=== PATIENT | female | born 1930 | race Caucasian/White ===

== ENCOUNTER → 2016-08-30 | Outpatient (CLI) | payer MEDICARE, OTHER ==
[2016-08-30 09:19] LABS: CH 31.5; CHCM 33.8; HCT 43.5 % (34.0-46.0); HDW 2.51; HGB 14.5 gm/dL (11.4-16.0); MCH 31.2 pg (25.0-35.0); MCHC 33.3 g/dL (31.0-37.0); MCV 93.6 fL (80.0-100.0); RBC 4.64 m/uL (3.80-5.40); RDW 13.1 % (11.5-15.5); WBC 4.9 k/uL (3.8-10.6)
[2016-08-30 09:23] LABS: ALT 37 U/L (9-52); AST 25 U/L (14-36); Alkaline Phosphatase 99 U/L (38-126); Anion Gap 8 mmol/L; Blood Urea Nitrogen 14 mg/dL (7-17); Calcium 9.8 mg/dL (8.4-10.2); Carbon Dioxide 32 mmol/L (22-30); Chloride 99 mmol/L (98-107); Cholesterol 256 mg/dL (<200); Glucose 131 mg/dL (74-99); HDL Cholesterol 57 mg/dL (40-60); Non-African American GFR(MDRD) >60 (>60 ml/min/1.73 sqM); Sodium 139 mmol/L (137-145); Total Bilirubin 0.8 mg/dL (0.2-1.3); Triglycerides 179 mg/dL (<150)
[2016-08-30 10:31] LABS: Amorphous Sediment,Urine Rare /hpf; Appearance,Urine Cloudy (Clear); Bilirubin,Urine Negative (Negative); Glucose,Urine (UA) Negative (Negative); Ketones,Urine Negative (Negative); Leukocyte Esterase,Urine Large (Negative); Mucus,Urine Rare /hpf; Nitrite,Urine Negative (Negative); PH, Urine 6.5 (5.0-8.0); Particle Count 10015; Protein,Urine 1+ (Negative); Specific Gravity,Urine 1.014 (1.001-1.035); Squamous Epithelial Cell,Urine 2 /hpf (0-4); UA Billing (MACRO vs. MICRO) MICRO; Urobilinogen,Urine <2.0 mg/dL (<2.0); WBC,Urine 24 /hpf (0-5)
[2016-08-30 13:06] LABS: Hemoglobin A1C 5.7 % (4.2-6.1)
== END | disposition home or self-care (01) ==
LOC: LABWHC1 08:04
PROVIDERS: ATTEND Family Medicine
DX: E11.9 Type 2 diabetes mellitus without complications (principal); E78.5 Hyperlipidemia, unspecified
CPT/HCPCS: 36415; 80053; 80061; 81001; 82043; 83036; 85027

== ENCOUNTER → 2016-12-04 | Outpatient (CLI) | payer MEDICARE, OTHER ==
[2016-12-04 08:08] LABS: CH 31.6; CHCM 33.8; HCT 42.6 % (34.0-46.0); HDW 2.44; HGB 14.3 gm/dL (11.4-16.0); MCH 31.6 pg (25.0-35.0); MCHC 33.6 g/dL (31.0-37.0); Mean Platelet Volume 7.4; RBC 4.53 m/uL (3.80-5.40); RDW 13.5 % (11.5-15.5); WBC 4.7 k/uL (3.8-10.6)
[2016-12-04 08:28] LABS: ALT 27 U/L (9-52); AST 24 U/L (14-36); Alkaline Phosphatase 108 U/L (38-126); Anion Gap 10 mmol/L; Blood Urea Nitrogen 15 mg/dL (7-17); Calcium 9.6 mg/dL (8.4-10.2); Carbon Dioxide 26 mmol/L (22-30); Chloride 105 mmol/L (98-107); Cholesterol 249 mg/dL (<200); Glucose 120 mg/dL (74-99); HDL Cholesterol 64 mg/dL (40-60); Non-African American GFR(MDRD) >60 (>60 ml/min/1.73 sqM); Potassium 4.2 mmol/L (3.5-5.1); Sodium 141 mmol/L (137-145); Total Bilirubin 0.8 mg/dL (0.2-1.3); Total Protein 6.9 g/dL (6.3-8.2); Triglycerides 124 mg/dL (<150)
== END | disposition home or self-care (01) ==
LOC: LABWHC1 07:10
PROVIDERS: ATTEND Family Medicine
DX: E11.9 Type 2 diabetes mellitus without complications (principal); E78.5 Hyperlipidemia, unspecified
CPT/HCPCS: 36415; 80053; 80061; 83036; 85027

== ENCOUNTER → 2017-03-06 | Outpatient (CLI) | payer MEDICARE, OTHER ==
[2017-03-06 07:44] LABS: CHCM 33.8; HCT 44.2 % (34.0-46.0); HDW 2.42; HGB 14.6 gm/dL (11.4-16.0); MCH 31.5 pg (25.0-35.0); MCV 95.3 fL (80.0-100.0); Mean Platelet Volume 7.9; RBC 4.64 m/uL (3.80-5.40); RDW 14.1 % (11.5-15.5); WBC 4.6 k/uL (3.8-10.6)
[2017-03-06 08:32] LABS: ALT 29 U/L (9-52); AST 23 U/L (14-36); Alkaline Phosphatase 124 U/L (38-126); Anion Gap 7 mmol/L; Blood Urea Nitrogen 15 mg/dL (7-17); Calcium 9.8 mg/dL (8.4-10.2); Carbon Dioxide 29 mmol/L (22-30); Chloride 103 mmol/L (98-107); Cholesterol 270 mg/dL (<200); Glucose 125 mg/dL (74-99); HDL Cholesterol 65 mg/dL (40-60); Non-African American GFR(MDRD) >60 (>60 ml/min/1.73 sqM); Potassium 4.9 mmol/L (3.5-5.1); Sodium 139 mmol/L (137-145); Total Bilirubin 0.7 mg/dL (0.2-1.3); Total Protein 6.6 g/dL (6.3-8.2)
== END | disposition home or self-care (01) ==
LOC: LABWHC1 07:08
PROVIDERS: ATTEND Family Medicine
DX: E78.5 Hyperlipidemia, unspecified (principal); E11.9 Type 2 diabetes mellitus without complications
CPT/HCPCS: 36415; 80053; 80061; 83036; 85027

== ENCOUNTER → 2017-06-12 | Outpatient (CLI) | payer MEDICARE, OTHER ==
[2017-06-12 09:53] LABS: Basophils # (A) 0.1 k/uL (0-0.2); Basophils % (A) 1 %; CH 30.7; CHCM 32.2; Eosinophils # (A) 0.1 k/uL (0-0.7); Eosinophils % (A) 1 %; HCT 44.5 % (34.0-46.0); HDW 2.32; HGB 14.5 gm/dL (11.4-16.0); Luc % (Auto) 2; Lymphocytes # (A) 0.9 k/uL (1.0-4.8); Lymphocytes % (A) 19 %; MCH 31.1 pg (25.0-35.0); MCHC 32.5 g/dL (31.0-37.0); MCV 95.9 fL (80.0-100.0); Mean Platelet Volume 8.1; Monocytes # (A) 0.4 k/uL (0-1.0); Monocytes % (A) 9 %; Neutrophils # (A) 3.2 k/uL (1.3-7.7); Neutrophils % (A) 68 %; RBC 4.64 m/uL (3.80-5.40); RDW 14.7 % (11.5-15.5); WBC 4.7 k/uL (3.8-10.6); WBC (Perox) 4.71
[2017-06-12 10:00] LABS: Amorphous Sediment,Urine Few /hpf; Appearance,Urine Cloudy (Clear); Bacteria,Urine Rare /hpf; Bilirubin,Urine Negative (Negative); Glucose,Urine (UA) Negative (Negative); Ketones,Urine Negative (Negative); Leukocyte Esterase,Urine Large (Negative); Nitrite,Urine Negative (Negative); Particle Count 54765; Protein,Urine Negative (Negative); Specific Gravity,Urine 1.007 (1.001-1.035); UA Billing (MACRO vs. MICRO) MICRO; Urobilinogen,Urine <2.0 mg/dL (<2.0); WBC,Urine 32 /hpf (0-5)
[2017-06-12 10:10] LABS: ALT 29 U/L (9-52); AST 27 U/L (14-36); Alkaline Phosphatase 104 U/L (38-126); Anion Gap 8 mmol/L; Blood Urea Nitrogen 13 mg/dL (7-17); Calcium 10.1 mg/dL (8.4-10.2); Carbon Dioxide 30 mmol/L (22-30); Chloride 102 mmol/L (98-107); Cholesterol 267 mg/dL (<200); Glucose 128 mg/dL (74-99); HDL Cholesterol 63 mg/dL (40-60); Non-African American GFR(MDRD) >60 (>60 ml/min/1.73 sqM); Potassium 4.6 mmol/L (3.5-5.1); Sodium 140 mmol/L (137-145); Total Bilirubin 0.7 mg/dL (0.2-1.3)
[2017-06-12 18:46] LABS: Urine Creatinine 33.3 mg/dL
== END | disposition home or self-care (01) ==
LOC: LABWHC1 07:34
PROVIDERS: ATTEND Family Medicine
DX: E78.5 Hyperlipidemia, unspecified (principal); E11.9 Type 2 diabetes mellitus without complications
CPT/HCPCS: 36415; 80053; 80061; 81001; 82043; 82570; 83036; 85025

== ENCOUNTER → 2017-09-18 | Outpatient (CLI) | payer MEDICARE, OTHER ==
[2017-09-18 07:54] LABS: Basophils % (A) 1 %; Eosinophils # (A) 0.1 k/uL (0-0.7); Eosinophils % (A) 1 %; HCT 38.7 % (34.0-46.0); HGB 13.1 gm/dL (11.4-16.0); Lymphocytes # (A) 1.1 k/uL (1.0-4.8); Lymphocytes % (A) 22 %; MCH 31.1 pg (25.0-35.0); MCHC 33.9 g/dL (31.0-37.0); MCV 91.7 fL (80.0-100.0); Mean Platelet Volume 7.8; Monocytes # (A) 0.5 k/uL (0-1.0); Monocytes % (A) 9 %; Neutrophils # (A) 3.2 k/uL (1.3-7.7); Neutrophils % (A) 65 %; Platelet Count 181 k/uL (150-450); RBC 4.22 m/uL (3.80-5.40); RDW 13.1 % (11.5-15.5)
[2017-09-18 08:20] LABS: ALT 27 U/L (9-52); AST 22 U/L (14-36); Alkaline Phosphatase 112 U/L (38-126); Anion Gap 8 mmol/L; Blood Urea Nitrogen 15 mg/dL (7-17); Calcium 9.8 mg/dL (8.4-10.2); Carbon Dioxide 31 mmol/L (22-30); Chloride 100 mmol/L (98-107); Cholesterol 238 mg/dL (<200); Glucose 119 mg/dL (74-99); HDL Cholesterol 63 mg/dL (40-60); LDL Cholesterol,Calculated 153 mg/dL (0-99); Potassium 4.3 mmol/L (3.5-5.1); Sodium 139 mmol/L (137-145); Total Bilirubin 0.7 mg/dL (0.2-1.3); Total Protein 6.5 g/dL (6.3-8.2); Triglycerides 112 mg/dL (<150)
== END | disposition home or self-care (01) ==
LOC: LABWHC1 07:07
PROVIDERS: ATTEND Family Medicine
DX: E78.5 Hyperlipidemia, unspecified (principal); E11.9 Type 2 diabetes mellitus without complications
CPT/HCPCS: 36415; 80053; 80061; 85025

== ENCOUNTER → 2017-12-11 | Outpatient (CLI) | payer MEDICARE, OTHER ==
[2017-12-11 07:52] LABS: Basophils % (A) 1 %; Eosinophils % (A) 1 %; HCT 40.2 % (34.0-46.0); HGB 13.5 gm/dL (11.4-16.0); Lymphocytes # (A) 0.9 k/uL (1.0-4.8); Lymphocytes % (A) 21 %; MCH 30.6 pg (25.0-35.0); MCHC 33.5 g/dL (31.0-37.0); MCV 91.2 fL (80.0-100.0); Mean Platelet Volume 7.2; Monocytes # (A) 0.3 k/uL (0-1.0); Monocytes % (A) 6 %; Neutrophils % (A) 68 %; Platelet Count 188 k/uL (150-450); RBC 4.41 m/uL (3.80-5.40); RDW 13.4 % (11.5-15.5); WBC 4.3 k/uL (3.8-10.6)
[2017-12-11 08:02] LABS: Appearance,Urine Cloudy (Clear); Bacteria,Urine Occasional /hpf; Bilirubin,Urine Negative (Negative); Blood,Urine Negative (Negative); Color,Urine Yellow; Glucose,Urine (UA) Negative (Negative); Ketones,Urine Negative (Negative); Leukocyte Esterase,Urine Large (Negative); Mucus,Urine Rare /hpf; Nitrite,Urine Negative (Negative); Protein,Urine Negative (Negative); Specific Gravity,Urine 1.012 (1.001-1.035); Squamous Epithelial Cell,Urine 1 /hpf (0-4); Urobilinogen,Urine <2.0 mg/dL (<2.0); WBC,Urine >182 /hpf (0-5)
[2017-12-11 08:16] LABS: ALT 31 U/L (9-52); AST 25 U/L (14-36); Albumin 4.2 g/dL (3.5-5.0); Alkaline Phosphatase 121 U/L (38-126); Anion Gap 10 mmol/L; Blood Urea Nitrogen 15 mg/dL (7-17); Calcium 9.9 mg/dL (8.4-10.2); Carbon Dioxide 28 mmol/L (22-30); Chloride 101 mmol/L (98-107); Cholesterol 223 mg/dL (<200); Glucose 125 mg/dL (74-99); HDL Cholesterol 59 mg/dL (40-60); LDL Cholesterol,Calculated 139 mg/dL (0-99); Potassium 4.5 mmol/L (3.5-5.1); Sodium 139 mmol/L (137-145); Total Bilirubin 0.4 mg/dL (0.2-1.3); Total Protein 6.4 g/dL (6.3-8.2); Triglycerides 127 mg/dL (<150)
[2017-12-11 15:21] LABS: Hemoglobin A1C 6.1 % (4.0-6.0)
== END | disposition home or self-care (01) ==
LOC: LABWHC1 07:02
PROVIDERS: ATTEND Family Medicine
DX: E78.5 Hyperlipidemia, unspecified (principal); E11.9 Type 2 diabetes mellitus without complications
CPT/HCPCS: 36415; 80053; 80061; 81001; 83036; 85025

== ENCOUNTER → 2018-03-12 | Outpatient (CLI) | payer MEDICARE, OTHER ==
[2018-03-12 07:32] LABS: Basophils % (A) 1 %; Eosinophils % (A) 1 %; HCT 43.4 % (34.0-46.0); HGB 14.2 gm/dL (11.4-16.0); Lymphocytes % (A) 21 %; MCH 30.4 pg (25.0-35.0); MCHC 32.7 g/dL (31.0-37.0); MCV 92.9 fL (80.0-100.0); Mean Platelet Volume 7.3; Monocytes # (A) 0.5 k/uL (0-1.0); Monocytes % (A) 10 %; Neutrophils # (A) 3.2 k/uL (1.3-7.7); Neutrophils % (A) 64 %; Platelet Count 150 k/uL (150-450); RBC 4.67 m/uL (3.80-5.40); RDW 13.4 % (11.5-15.5); WBC 4.9 k/uL (3.8-10.6)
[2018-03-12 07:56] LABS: Amorphous Sediment,Urine Rare /hpf; Appearance,Urine Cloudy (Clear); Bacteria,Urine Moderate /hpf; Bilirubin,Urine Negative (Negative); Blood,Urine Negative (Negative); Color,Urine Light Yellow; Glucose,Urine (UA) Negative (Negative); Ketones,Urine Negative (Negative); Leukocyte Esterase,Urine Large (Negative); Mucus,Urine Rare /hpf; Nitrite,Urine Positive (Negative); PH, Urine 7.5 (5.0-8.0); Protein,Urine Negative (Negative); Specific Gravity,Urine 1.011 (1.001-1.035); Squamous Epithelial Cell,Urine <1 /hpf (0-4); Urobilinogen,Urine <2.0 mg/dL (<2.0); WBC,Urine 122 /hpf (0-5)
[2018-03-12 08:23] LABS: ALT 26 U/L (9-52); AST 25 U/L (14-36); Albumin 4.2 g/dL (3.5-5.0); Alkaline Phosphatase 96 U/L (38-126); Anion Gap 8 mmol/L; Blood Urea Nitrogen 14 mg/dL (7-17); Calcium 9.6 mg/dL (8.4-10.2); Carbon Dioxide 30 mmol/L (22-30); Chloride 101 mmol/L (98-107); Cholesterol 257 mg/dL (<200); Glucose 117 mg/dL (74-99); HDL Cholesterol 64 mg/dL (40-60); LDL Cholesterol,Calculated 168 mg/dL (0-99); Potassium 4.6 mmol/L (3.5-5.1); Sodium 139 mmol/L (137-145); Total Bilirubin 0.9 mg/dL (0.2-1.3); Total Protein 6.9 g/dL (6.3-8.2); Triglycerides 127 mg/dL (<150)
[2018-03-12 18:00] LABS: Hemoglobin A1C 5.8 % (4.0-6.0)
== END | disposition home or self-care (01) ==
LOC: LABWHC1 06:57
PROVIDERS: ATTEND Family Medicine
DX: E11.9 Type 2 diabetes mellitus without complications (principal); E78.5 Hyperlipidemia, unspecified
CPT/HCPCS: 36415; 80053; 80061; 81001; 82043; 82570; 83036; 85025

== ENCOUNTER 2019-02-08 08:23 | Inpatient (IN) | payer OTHER, MEDICARE ==
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
[2019-02-08] MEDS ORDERED: MIDAZOLAM 1 MG/ML 5 ML VIAL ONE (08:45)
[2019-02-08] MEDS ORDERED: SUCCINYLCHOLINE CHLORIDE VIAL 200 MG/10 ML VIAL IV ONE (08:45)
--- NOTE | 2019-02-08 09:11 | XR ---
EXAMINATION TYPE: XR chest 1V portable DATE OF EXAM: 02/08/2019 HISTORY: POST INTUBATION. REFERENCE: Previous study of earlier today. FINDINGS: The patient has been intubated. ET tube is in satisfactory position approximately 6 cm from the natasha. A right pleural drain has been inserted. Only a miniscule right apical pneumothorax pers ists. There is worsening subcutaneous emphysema on the right. The left lung remains partially opaque. The heart is not appear enlarged. IMPRESSION: 1. IMPROVED RIGHT APICAL PNEUMOTHORAX. 2. SATISFACTORY ET TUBE PLACEMENT.
[2019-02-08] MEDS ORDERED: TRANEXAMIC ACID 1,000 MG in SODIUM CHLORIDE 0.9% 250 ML IV ONE (09:14)
[2019-02-08] MEDS ORDERED: TRANEXAMIC ACID 1,000 MG in SODIUM CHLORIDE 0.9% 100 ML IV STA (09:14)
[2019-02-08 09:23] LABS: Basophils # (A) 0.1 k/uL (0-0.2); Basophils % (A) 1 %; Eosinophils # (A) 0.1 k/uL (0-0.7); Eosinophils % (A) 1 %; HGB 10.8 gm/dL (11.4-16.0); Lymphocytes # (A) 5.3 k/uL (1.0-4.8); Lymphocytes % (A) 54 %; MCHC 31.6 g/dL (31.0-37.0); MCV 94.9 fL (80.0-100.0); Monocytes # (A) 0.4 k/uL (0-1.0); Monocytes % (A) 4 %; Neutrophils # (A) 3.7 k/uL (1.3-7.7); Neutrophils % (A) 37 %; Platelet Count 165 k/uL (150-450); RBC 3.58 m/uL (3.80-5.40); RDW 13.7 % (11.5-15.5); WBC 9.8 k/uL (3.8-10.6)
[2019-02-08 09:35] LABS: ALT 529 U/L (9-52); AST 635 U/L (14-36); African American GFR (CKD) >90 (>60 ml/min/1.73 sqM); Alcohol <10 mg/dL; Alkaline Phosphatase 89 U/L (38-126); Amylase 52 U/L (30-110); Anion Gap 11 mmol/L; Blood Urea Nitrogen 17 mg/dL (7-17); Calcium 8.4 mg/dL (8.4-10.2); Carbon Dioxide 19 mmol/L (22-30); Chloride 108 mmol/L (98-107); Glucose 229 mg/dL (74-99); Non-African American GFR(CKD) 79 (>60 ml/min/1.73 sqM); Sodium 138 mmol/L (137-145); Total Bilirubin 0.6 mg/dL (0.2-1.3); Total Protein 5.1 g/dL (6.3-8.2)
[2019-02-08] MEDS: SODIUM CHLORIDE 0.9% 1,000 ML IV STA ×4 (09:35→09:50)
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
[2019-02-08] MEDS ORDERED: SODIUM CHLORIDE 0.9% 250 ML BAG ONE (09:38)
[2019-02-08] MEDS ORDERED: TRANEXAMIC ACID 1,000 MG/10 ML VIAL ONE (09:38)
[2019-02-08] MEDS ORDERED: ROCURONIUM BROMIDE 10 MG/ML 10 ML VIAL IV ONE (09:38)
[2019-02-08] MEDS ORDERED: MIDAZOLAM 2 MG/2 ML VIAL ONE (09:38)
[2019-02-08] MEDS ORDERED: fentaNYL (PF) 50 MCG/ML 2 ML AMP ONE (09:38)
[2019-02-08 10:01] LABS: Creatine Kinase MB 3.7 ng/mL (0.0-2.4); Troponin I 0.013 ng/mL (0.000-0.034)
--- NOTE | 2019-02-08 10:09 | XR ---
EXAMINATION TYPE: XR chest 1V portable DATE OF EXAM: 02/08/2019 HISTORY: Pain. REFERENCE: Previous study of earlier today. FINDINGS: The patient is ET tube and right pleural drain remain in place unchanged in appearance. The re is been interval placement of a left pleural drain and NG tube. The NG tube tip is within the stom ach. I no longer see evidence of a pneumothorax on the right. There continues to be subcutaneous emph ysema on the right. Heart size is obscured. IMPRESSION: 1. INTERVAL TUBE PLACEMENT DESCRIBED. 2. I CANNOT LONGER IDENTIFY A RIGHT-SIDED PNEUMOTHORAX. 3. CONTINUING INCREASED OPACITY OF THE LEFT LUNG.
[2019-02-08 11:31] LABS: Allen Test Performed? Yes
[2019-02-08 11:33] LABS: ABG Base Excess -13.6 mmol/L; ABG HCO3 13 mmol/L (21-25); ABG Oxygen Saturation 99.5 % (94-97); ABG PCO2 39 mmHg (35-45); ABG PO2 256 mmHg (83-108); Basophils % (A) 0 %; Eosinophils % (A) 0 %; Hypochromasia Slight; Lymphocytes % (A) 25 %; MCH 29.8 pg (25.0-35.0); MCHC 32.2 g/dL (31.0-37.0); MCV 92.6 fL (80.0-100.0); Mean Platelet Volume 7.4; Monocytes # (A) 0.7 k/uL (0-1.0); Monocytes % (A) 9 %; Neutrophils # (A) 5.3 k/uL (1.3-7.7); Neutrophils % (A) 64 %; RBC 2.09 m/uL (3.80-5.40); RDW 14.1 % (11.5-15.5); WBC 8.2 k/uL (3.8-10.6)
[2019-02-08 11:40] LABS: ABG PH 7.16 (7.35-7.45)
--- NOTE | 2019-02-08 11:40 | P.ANPRN ---
Procedure Note - Anesthesia - Invasive Line Right Arterial Line Time Out Performed: Yes Date of Procedure: 02/08/19 Time of Procedure: 09:30 Location of Patient Procedure: OR Preparation: Sterile Prep, Sterile Dressing Arterial Line Location: Radial Ultrasound Used: Yes Needle Guage: 20 Narrative: Arterial line placement per sterile protocol utilized. Right Central Line Time Out Performed: Yes Date of Procedure: 02/08/19 Time of Procedure: 09:20 Location of Patient Procedure: OR Preparation: Sterile Prep, Sterile Dressing Ultrasound Used: Yes Needle Guage: 18 Narrative: Central line placement per sterile protocol utilized.
[2019-02-08 11:42] LABS: HCT 19.3 % (34.0-46.0); HGB 6.2 gm/dL (11.4-16.0)
[2019-02-08 11:43] LABS: Platelet Count 33 k/uL (150-450)
[2019-02-08 11:48] LABS: INR 1.8 (<1.2); Prothrombin Time 17.9 sec (9.0-12.0)
[2019-02-08 11:49] LABS: ALT 112 U/L (9-52); AST 118 U/L (14-36); African American GFR (CKD) >90 (>60 ml/min/1.73 sqM); Albumin 1.1 g/dL (3.5-5.0); Alkaline Phosphatase <20 U/L (38-126); Anion Gap 6 mmol/L; Blood Urea Nitrogen 12 mg/dL (7-17); Carbon Dioxide 14 mmol/L (22-30); Chloride 120 mmol/L (98-107); Glucose 234 mg/dL (74-99); Non-African American GFR(CKD) >90 (>60 ml/min/1.73 sqM); Potassium 3.2 mmol/L (3.5-5.1); Sodium 140 mmol/L (137-145); Total Bilirubin 0.2 mg/dL (0.2-1.3); Total Protein 2.1 g/dL (6.3-8.2)
--- NOTE | 2019-02-08 11:50 | P.PCN ---
Date of Procedure: 02/08/19 Procedure(s) Performed: Endotracheal intubation Indications for Procedure: Trauma with hemodynamic instability Description of Procedure: Patient induced with 4 mg versed followed by 100 mg succinylcholine. DLx1 with Glidescope 3 maintaining in line stabilization of the neck. Grade 1 view. 7.5 ETT to 22 cm. Secured by respiratory. Further care by ED
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
--- NOTE | 2019-02-08 12:33 | P.OP ---
Date of Procedure: 02/08/19 Preoperative Diagnosis: Hemoperitoneum Postoperative Diagnosis: Left hemothorax Procedure(s) Performed: Exploratory laparotomy Left anterior lateral thoracotomy Anesthesia: HOLLIE Surgeon: Lawrence Galarza Pathology: none sent Disposition: ICU Description of Procedure: The patient's placed on the operative table in supine position. She received general anesthesia. Patient's abdomen was opened in the midline. Using cautery the abdominal wall was divided. The abdominal wall retractors placed. There was no blood seen in the pleural cavity. The small bowel was run. There was a small hematoma small bowel however the bowel seemed viable. The spleen was examined there is no evidence of any splenic injury. The liver appeared normal. The colon appeared normal. The small bowel was run and there was no other injury seen on the small bowel. The fascia was then closed in looped #1 PDS suture. Skin was closed chandan. The patient had a large amount of hemorrhagic drainage to her left chest tube. I contacted Dr. Metzger. Initial plan was to do a CAT scan of her chest however the patient was bleeding too profusely in order to do this. It was decided to perform a left anterior lateral thoracotomy. Dr. Metzger was in route when I perform thoracotomy. The skin was incised at the fourth intercostal space and then using the cautery the chest wall was divided and then the retractors placed in the to the thorax in the thoracotomy was opened. There was a large amount of blood in the thorax. Approximately 2 L of blood was in the thorax. This point the thorax was packed. There appeared to be bleeding near the spine. It was unsure if this is coming from the aorta. Pressure was held in this area until Dr. Metzger arrived. Dr. Metzger arrived in then performed operative repair of the bleeding. Please see his operative note.
[2019-02-08 12:54] LABS: Glucose,Whole Blood 258 mg/dL (75-99)
[2019-02-08] MEDS: NOREPINEPHRINE 4 MG in SODIUM CHLORIDE 0.9% 250 ML IV SCH (13:00)
[2019-02-08] MEDS ORDERED: CLEVIDIPINE BUTYRATE 25 MG in EMPTY BAG 1 BAG IV SCH (13:00)
[2019-02-08] MEDS: PROPOFOL 1,000 MG in EMPTY BAG 1 BAG IV SCH ×2 (13:10→19:21)
[2019-02-08] MEDS ORDERED: NALOXONE 0.4 MG/ML 1 ML VIAL IV PRN (13:19)
[2019-02-08] MEDS ORDERED: ARTIFICIAL TEARS-HYPROMELLOSE DROPS 15 ML BTL BOTH EYES PRN (13:19)
[2019-02-08] MEDS ORDERED: IPRATROPIUM-ALBUTEROL 3 ML NEB INHALATION PRN (13:19)
[2019-02-08 13:22] LABS: ABG Base Excess -5.8 mmol/L; ABG HCO3 21 mmol/L (21-25); ABG Oxygen Saturation 99.7 % (94-97); ABG PCO2 41 mmHg (35-45); ABG PH 7.31 (7.35-7.45); ABG PO2 364 mmHg (83-108); ABG TCO2 22 mmol/L (19-24); Allen Test Performed? Yes
[2019-02-08 13:38] LABS: Basophils % (A) 0 %; Eosinophils % (A) 0 %; HCT 29.4 % (34.0-46.0); Lymphocytes # (A) 0.5 k/uL (1.0-4.8); Lymphocytes % (A) 10 %; MCH 29.4 pg (25.0-35.0); MCV 91.9 fL (80.0-100.0); Mean Platelet Volume 8.1; Monocytes # (A) 0.4 k/uL (0-1.0); Monocytes % (A) 7 %; Neutrophils # (A) 4.5 k/uL (1.3-7.7); Neutrophils % (A) 82 %; RDW 14.2 % (11.5-15.5); WBC 5.5 k/uL (3.8-10.6)
[2019-02-08 13:49] LABS: HGB 9.4 gm/dL (11.4-16.0); Platelet Count 104 k/uL (150-450)
[2019-02-08 13:54] LABS: INR 1.2 (<1.2); Partial Thromboplastin Time 32.7 sec (22.0-30.0); Prothrombin Time 12.5 sec (9.0-12.0)
[2019-02-08 13:55] LABS: ALT 114 U/L (9-52); AST 150 U/L (14-36); African American GFR (CKD) >90 (>60 ml/min/1.73 sqM); Albumin 2.1 g/dL (3.5-5.0); Alkaline Phosphatase 40 U/L (38-126); Anion Gap 7 mmol/L; Blood Urea Nitrogen 13 mg/dL (7-17); Carbon Dioxide 20 mmol/L (22-30); Chloride 116 mmol/L (98-107); Glucose 258 mg/dL (74-99); Non-African American GFR(CKD) >90 (>60 ml/min/1.73 sqM); Potassium 3.6 mmol/L (3.5-5.1); Sodium 143 mmol/L (137-145); Total Bilirubin 0.6 mg/dL (0.2-1.3); Total Protein 3.9 g/dL (6.3-8.2)
[2019-02-08 14:01] LABS: Calcium 5.6 mg/dL (8.4-10.2); Ionized Calcium 3.1 mg/dL (4.5-5.3)
--- NOTE | 2019-02-08 14:01 | XR ---
EXAMINATION TYPE: XR chest 1V DATE OF EXAM: 02/08/2019 HISTORY: tube placement. REFERENCE: Previous study of earlier today. FINDINGS: The patient is ET tube and NG tube remain in place, unchanged in appearance. A right pleura l drain is in place. No definite pneumothorax is seen. A second left pleural drain has been inserted. There is markedly improved aeration of the left lung. There is some continuing subcutaneous emphysem a on the right. There is a tiny apical pneumothorax on the left. The heart is not enlarged. IMPRESSION: 1. MARKED IMPROVEMENT IN AERATION OF THE LEFT LUNG. 2. TINY APICAL PNEUMOTHORAX ON THE LEFT.
--- NOTE | 2019-02-08 14:04 | XR ---
EXAMINATION TYPE: XR hand complete LT , 3 VIEWS DATE OF EXAM ORDERED: 02/08/2019 HISTORY: Pain. COMPARISON: None. FINDINGS: There is marked osteopenia present likely on the basis of osteoporosis. There is a comminuted, mildly displaced fracture the distal ulnar diaphysis and ulnar styloid. A defi nite associated radial fracture is not identified. There are severe degenerative changes present in t he left first carpal metacarpal joint. There are degenerative changes in the DIP joints. IMPRESSION: 1. MILDLY DISPLACED AND COMMINUTED FRACTURE OF THE DISTAL ULNAR DIAPHYSIS AND STYLOID. 2. OSTEOPENIA. 3. DEGENERATIVE CHANGE. CODE A: INITIAL ENCOUNTER FOR CLOSED FRACTURE.
--- NOTE | 2019-02-08 14:05 | XR ---
EXAMINATION TYPE: XR ankle complete RT , 3 VIEWS DATE OF EXAM ORDERED: 02/08/2019 HISTORY: Pain. COMPARISON: None. FINDINGS: There is diffuse osteopenia likely on the basis of osteoporosis. No acute fracture, disloc ation or ankle joint effusion is seen. There are degenerative changes in the tarsal bones. IMPRESSION: NO ACUTE OSSEOUS LESION.
[2019-02-08] MEDS ORDERED: Magnesium Replacement Protocol 1 EACH MISC MISCELLANE PRN (14:24)
[2019-02-08] MEDS ORDERED: Potassium Replacement Protocol 1 EACH MISC MISCELLANE PRN (14:25)
[2019-02-08] MEDS: MAGNESIUM SULFATE-D5W PMX 1 GM in DEXTROSE/WATER 1 100ML.BAG IVPB SCH ×3 (14:31→17:26)
[2019-02-08] MEDS: POTASSIUM CHLORIDE 20 MEQ in WATER FOR INJECTION 1 100ML.BAG IVPB SCH ×2 (14:33→17:15)
[2019-02-08] MEDS: IPRATROPIUM-ALBUTEROL 3 ML NEB INHALATION SCH ×3 (15:41→23:14)
[2019-02-08] MEDS ORDERED: CALCIUM CHLORIDE 100 MG/ML 10 ML SYRINGE IVP ONE (15:42)
[2019-02-08] MEDS ORDERED: CALCIUM GLUCONATE 2 GM in SODIUM CHLORIDE 0.9% 100 ML IVPB STA (15:46)
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
[2019-02-08 17:12] LABS: Glucose,Whole Blood 311 mg/dL (75-99)
[2019-02-08] MEDS: INSULIN ASPART (NovoLOG) 100 UNIT/ML VIAL SQ SCH ×2 (17:16→20:29)
[2019-02-08 17:45] LABS: HCT 28.9 % (34.0-46.0); HGB 9.5 gm/dL (11.4-16.0); MCH 29.7 pg (25.0-35.0); MCHC 32.8 g/dL (31.0-37.0); MCV 90.7 fL (80.0-100.0); Mean Platelet Volume 7.5; Platelet Count 120 k/uL (150-450); RBC 3.19 m/uL (3.80-5.40); RDW 14.5 % (11.5-15.5); WBC 7.5 k/uL (3.8-10.6)
[2019-02-08 18:14] LABS: Prothrombin Time 11.1 sec (9.0-12.0)
[2019-02-08] MEDS ORDERED: SODIUM CHLORIDE 0.9% 2,000 ML IV ONE (18:30)
[2019-02-08 18:32] LABS: Band Neutrophils % 19 %; Lymphocytes # (M) 0.45 k/uL (1.0-4.8); Monocytes # (M) 0.53 k/uL (0-1.0); Neutrophils % (M) 68 %; Nucleated Red Blood Cells 0 /100 WBC (0-0); Total Cells Counted 100
[2019-02-08 20:25] LABS: Glucose,Whole Blood 222 mg/dL (75-99)
[2019-02-08 21:00] LABS: ALT 105 U/L (9-52); AST 317 U/L (14-36); African American GFR (CKD) >90 (>60 ml/min/1.73 sqM); Albumin 2.6 g/dL (3.5-5.0); Alkaline Phosphatase 51 U/L (38-126); Anion Gap 9 mmol/L; Blood Urea Nitrogen 11 mg/dL (7-17); Calcium 6.6 mg/dL (8.4-10.2); Carbon Dioxide 20 mmol/L (22-30); Chloride 114 mmol/L (98-107); Glucose 204 mg/dL (74-99); Magnesium 2.2 mg/dL (1.6-2.3); Non-African American GFR(CKD) >90 (>60 ml/min/1.73 sqM); Potassium 3.7 mmol/L (3.5-5.1); Sodium 143 mmol/L (137-145); Total Bilirubin 0.6 mg/dL (0.2-1.3); Total Protein 4.8 g/dL (6.3-8.2)
[2019-02-08] MEDS: LACTATED RINGERS 1,000 ML IV SCH (22:20)
[2019-02-08] MEDS: CHLORHEXIDINE GLUCONATE 15 ML CUP MUCOUS MEM SCH (22:20)
[2019-02-08 23:27] LABS: Appearance,Urine Clear (Clear); Bilirubin,Urine Negative (Negative); Blood,Urine Moderate (Negative); Color,Urine Light Yellow; Glucose,Urine (UA) 1+ (Negative); Hyaline Casts,Urine 6 /lpf (0-2); Ketones,Urine Negative (Negative); Leukocyte Esterase,Urine Negative (Negative); Nitrite,Urine Negative (Negative); Protein,Urine Negative (Negative); RBC,Urine 3 /hpf (0-5); Specific Gravity,Urine 1.022 (1.001-1.035); Squamous Epithelial Cell,Urine <1 /hpf (0-4); Urobilinogen,Urine <2.0 mg/dL (<2.0); WBC,Urine 2 /hpf (0-5)
[2019-02-08 23:42] LABS: Amphetamine Screen,Urine Not Detected (NotDetected); Barbiturate Screen,Urine Not Detected (NotDetected); Benzodiazepines Screen,Urine Not Detected (NotDetected); Cocaine Screen,Urine Not Detected (NotDetected); Methadone Screen, Urine Not Detected (NotDetected); Opiate Screen,Urine Not Detected (NotDetected); Oxycodone Screen, Urine Not Detected (NotDetected); Phencyclidine Screen,Urine Not Detected (NotDetected); Tricyclic Antidepressant,Urine Not Detected (NotDetected); Urn Cannabinoid Scrn Not Detected (NotDetected)
[2019-02-09] MEDS: INSULIN ASPART (NovoLOG) 100 UNIT/ML VIAL SQ SCH ×6 (00:31→20:06)
[2019-02-09 00:33] LABS: Glucose,Whole Blood 167 mg/dL (75-99)
[2019-02-09] MEDS: PROPOFOL 1,000 MG in EMPTY BAG 1 BAG IV SCH ×3 (02:03→11:47)
[2019-02-09] MEDS: LACTATED RINGERS 1,000 ML IV SCH ×4 (03:58→23:22)
[2019-02-09] MEDS: IPRATROPIUM-ALBUTEROL 3 ML NEB INHALATION SCH ×6 (03:59→23:14)
[2019-02-09 04:14] LABS: Glucose,Whole Blood 126 mg/dL (75-99)
[2019-02-09 05:32] LABS: ABG Base Excess -2.5 mmol/L; ABG HCO3 22 mmol/L (21-25); ABG Oxygen Saturation 98.5 % (94-97); ABG PCO2 34 mmHg (35-45); ABG PH 7.42 (7.35-7.45); ABG PO2 103 mmHg (83-108); ABG TCO2 23 mmol/L (19-24); Allen Test Performed? Yes
[2019-02-09 05:47] LABS: HCT 23.8 % (34.0-46.0); MCH 29.2 pg (25.0-35.0); MCHC 32.9 g/dL (31.0-37.0); MCV 88.7 fL (80.0-100.0); RBC 2.68 m/uL (3.80-5.40); RDW 14.9 % (11.5-15.5); WBC 7.9 k/uL (3.8-10.6)
[2019-02-09 05:55] LABS: HGB 7.8 gm/dL (11.4-16.0)
[2019-02-09 06:17] LABS: African American GFR (CKD) >90 (>60 ml/min/1.73 sqM); Anion Gap 5 mmol/L; Blood Urea Nitrogen 11 mg/dL (7-17); Calcium 6.8 mg/dL (8.4-10.2); Carbon Dioxide 22 mmol/L (22-30); Chloride 114 mmol/L (98-107); Glucose 142 mg/dL (74-99); Magnesium 1.8 mg/dL (1.6-2.3); Non-African American GFR(CKD) 89 (>60 ml/min/1.73 sqM); Potassium 3.3 mmol/L (3.5-5.1); Sodium 141 mmol/L (137-145)
[2019-02-09 06:23] LABS: Band Neutrophils % 6 %; Lymphocytes # (M) 0.24 k/uL (1.0-4.8); Myelocytes # (M) 0.08 k/uL (0); Myelocytes % 1 %; Neutrophils % (M) 86 %; Nucleated Red Blood Cells 0 /100 WBC (0-0); Platelet Count 74 k/uL (150-450); Total Cells Counted 200
[2019-02-09] MEDS: POTASSIUM CHLORIDE 10 MEQ in WATER FOR INJECTION 1 100ML.BAG IVPB SCH ×3 (07:11→11:45)
[2019-02-09] MEDS: NOREPINEPHRINE 4 MG in SODIUM CHLORIDE 0.9% 250 ML IV SCH ×3 (07:12→20:03)
[2019-02-09] MEDS: MAGNESIUM SULFATE-D5W PMX 1 GM in DEXTROSE/WATER 1 100ML.BAG IVPB SCH ×2 (07:12→08:42)
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
[2019-02-09 08:19] LABS: Glucose,Whole Blood 161 mg/dL (75-99)
[2019-02-09] MEDS: HYDROmorphone 1 MG/ML 1 ML SYRINGE IVP PRN ×4 (08:39→23:20)
[2019-02-09] MEDS: PANTOPRAZOLE 40 MG/10 ML VIAL IV SCH (08:44)
[2019-02-09] MEDS: CHLORHEXIDINE GLUCONATE 15 ML CUP MUCOUS MEM SCH ×2 (08:45→23:19)
[2019-02-09 11:45] LABS: Glucose,Whole Blood 138 mg/dL (75-99)
[2019-02-09] MEDS ORDERED: POTASSIUM CHLORIDE 20 MEQ in WATER FOR INJECTION 1 100ML.BAG IVPB ONE (12:00)
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
[2019-02-09] MEDS ORDERED: ALBUMIN HUMAN 5% 500 ML in EMPTY BAG 1 BAG IVPB ONE (14:58)
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
[2019-02-09 16:18] LABS: Glucose,Whole Blood 114 mg/dL (75-99)
[2019-02-09 16:30] LABS: Potassium 4.2 mmol/L (3.5-5.1)
[2019-02-09 16:35] LABS: Basophils % (A) 0 %; Eosinophils % (A) 0 %; HCT 23.9 % (34.0-46.0); Lymphocytes # (A) 0.5 k/uL (1.0-4.8); Lymphocytes % (A) 4 %; MCH 29.9 pg (25.0-35.0); MCHC 33.4 g/dL (31.0-37.0); MCV 89.4 fL (80.0-100.0); Monocytes # (A) 0.6 k/uL (0-1.0); Monocytes % (A) 5 %; Neutrophils # (A) 10.1 k/uL (1.3-7.7); Neutrophils % (A) 89 %; RBC 2.67 m/uL (3.80-5.40); WBC 11.4 k/uL (3.8-10.6)
[2019-02-09 16:37] LABS: Platelet Count 95 k/uL (150-450)
--- NOTE | 2019-02-09 16:55 | XR ---
EXAMINATION TYPE: XR chest 1V DATE OF EXAM: 02/09/2019 COMPARISON: Prior chest x-ray 02/08/2019 HISTORY: Chest tubes, intubated TECHNIQUE: Single frontal view of the chest is obtained. FINDINGS: Bilateral chest tubes are in place, 2 on the left single on the right. Endotracheal tube a nd orogastric tube are overlying appropriate positions. There are surgical chandan over the left ches t. Additional tube is present over the left upper quadrant. Minimal left apical pneumothorax is prese nt. Heart size is stable. No sizable effusion. There are overlying cardiac leads. There is subcutaneo us emphysema. IMPRESSION: Findings are similar to prior exam.
[2019-02-09 20:16] LABS: Glucose,Whole Blood 119 mg/dL (75-99)
[2019-02-09 21:39] LABS: Hemoglobin A1C 6.3 % (4.0-6.0)
[2019-02-10] MEDS: INSULIN ASPART (NovoLOG) 100 UNIT/ML VIAL SQ SCH ×6 (00:12→20:26)
[2019-02-10 00:22] LABS: Glucose,Whole Blood 124 mg/dL (75-99)
[2019-02-10] MEDS: PROPOFOL 1,000 MG in EMPTY BAG 1 BAG IV SCH ×5 (00:22→22:59)
[2019-02-10] MEDS: IPRATROPIUM-ALBUTEROL 3 ML NEB INHALATION SCH ×6 (03:15→23:25)
[2019-02-10] MEDS: HYDROmorphone 1 MG/ML 1 ML SYRINGE IVP PRN ×3 (04:21→20:27)
[2019-02-10 04:29] LABS: Glucose,Whole Blood 132 mg/dL (75-99)
[2019-02-10 05:12] LABS: ABG Base Excess -0.9 mmol/L; ABG HCO3 24 mmol/L (21-25); ABG PCO2 42 mmHg (35-45); ABG PH 7.38 (7.35-7.45); ABG PO2 99 mmHg (83-108); ABG TCO2 26 mmol/L (19-24); Allen Test Performed? Yes
[2019-02-10 05:43] LABS: Basophils % (A) 0 %; Eosinophils % (A) 1 %; Lymphocytes # (A) 0.1 k/uL (1.0-4.8); Lymphocytes % (A) 3 %; MCH 28.5 pg (25.0-35.0); MCHC 31.1 g/dL (31.0-37.0); MCV 91.5 fL (80.0-100.0); Mean Platelet Volume 10.2; Monocytes # (A) 0.3 k/uL (0-1.0); Monocytes % (A) 5 %; Neutrophils # (A) 4.8 k/uL (1.3-7.7); Neutrophils % (A) 91 %; RBC 2.14 m/uL (3.80-5.40); RDW 15.2 % (11.5-15.5); WBC 5.3 k/uL (3.8-10.6)
[2019-02-10 05:52] LABS: African American GFR (CKD) >90 (>60 ml/min/1.73 sqM); Anion Gap 1 mmol/L; Blood Urea Nitrogen 11 mg/dL (7-17); Calcium 7.3 mg/dL (8.4-10.2); Carbon Dioxide 26 mmol/L (22-30); Chloride 113 mmol/L (98-107); Glucose 109 mg/dL (74-99); Magnesium 2.1 mg/dL (1.6-2.3); Non-African American GFR(CKD) 89 (>60 ml/min/1.73 sqM); Potassium 3.4 mmol/L (3.5-5.1); Sodium 140 mmol/L (137-145)
[2019-02-10 06:16] LABS: HGB 6.1 gm/dL (11.4-16.0)
[2019-02-10 06:17] LABS: HCT 19.6 % (34.0-46.0); Platelet Count 61 k/uL (150-450)
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
[2019-02-10 08:17] LABS: Glucose,Whole Blood 89 mg/dL (75-99)
[2019-02-10] MEDS: PANTOPRAZOLE 40 MG/10 ML VIAL IV SCH (08:23)
[2019-02-10] MEDS: POTASSIUM CHLORIDE 20 MEQ in WATER FOR INJECTION 1 100ML.BAG IVPB SCH ×2 (08:24→10:33)
[2019-02-10] MEDS: CHLORHEXIDINE GLUCONATE 15 ML CUP MUCOUS MEM SCH ×2 (08:24→20:27)
[2019-02-10] MEDS: LACTATED RINGERS 1,000 ML IV SCH ×2 (08:32→18:38)
--- NOTE | 2019-02-10 08:39 | XR ---
EXAMINATION TYPE: XR chest 1V portable DATE OF EXAM: 02/10/2019 COMPARISON: 02/09/2019 HISTORY: Line and tube placement TECHNIQUE: Single frontal view of the chest is obtained. FINDINGS: Enteric and endotracheal tubes are similar in positionr with the endotracheal tube slightl y cephalad in position. This could be advanced approximately 2 cm for optimal placement. Bilateral th oracostomy tubes remain in a similar position with subcutaneous emphysema seen on the right and skin chandan seen on the left. Minimal patchy atelectasis is seen at the costophrenic angles. There remain s a trace left apical pneumothorax unchanged. Right apical pleural reaction is evident. Cardiomediast inal silhouette is stable. IMPRESSION: Similar-appearing lines and tubes. Endotracheal tube could be advanced 2 cm placement. T race left apical pneumothorax remains as well as scattered areas of atelectasis.
--- NOTE | 2019-02-10 08:42 | XR ---
EXAMINATION TYPE: XR foot complete LT DATE OF EXAM: 02/10/2019 CLINICAL HISTORY: Swelling and bruising of the left foot TECHNIQUE: Frontal, lateral, and oblique images of the left foot are obtained. COMPARISON: None FINDINGS: There is no acute fracture/dislocation evident in the left foot. There is a hallux valgus deformity with prominent osteophyte formation of the medial distal first metatarsal head. Degenerativ e changes as interphalangeal and metatarsophalangeal joint space narrowing as well as tarsometatarsal joint space narrowing and opposing surface sclerosis are noted. There is diffuse osseous demineraliz ation. Hindfoot and midfoot generalized soft tissue swelling is evident however no periosteal reactio n or osseous erosion are noted. Small vessel atherosclerosis is seen. There appears to be old healed fracture deformity of the calcaneus. No acute fracture is evident. IMPRESSION: 1. No acute fracture or dislocation in the left foot. Appears to be an old fracture deformity of the calcaneus. However if there is recent injury ankle radiographs could be utilized for further assessme nt. 2. Generalized osseous demineralization, degenerative change, generalized hindfoot and midfoot edema, and pronounced hallux valgus deformity.
[2019-02-10 09:00] LABS: Appearance,Urine Clear (Clear); Bacteria,Urine Rare /hpf; Bilirubin,Urine Negative (Negative); Blood,Urine Small (Negative); Color,Urine Yellow; Glucose,Urine (UA) Negative (Negative); Ketones,Urine 1+ (Negative); Leukocyte Esterase,Urine Negative (Negative); Mucus,Urine Rare /hpf; Nitrite,Urine Negative (Negative); Protein,Urine Trace (Negative); RBC,Urine 2 /hpf (0-5); Specific Gravity,Urine 1.017 (1.001-1.035); Urobilinogen,Urine <2.0 mg/dL (<2.0); WBC,Urine 3 /hpf (0-5)
[2019-02-10] MEDS ORDERED: ACETAMINOPHEN IV (For NPO) 1,000 MG in EMPTY BAG 1 BAG IVPB STA (09:06)
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
[2019-02-10 11:51] LABS: Glucose,Whole Blood 120 mg/dL (75-99)
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
[2019-02-10 15:06] LABS: HCT 24.7 % (34.0-46.0); MCH 29.4 pg (25.0-35.0); MCHC 32.3 g/dL (31.0-37.0); MCV 91.1 fL (80.0-100.0); Mean Platelet Volume 8.9; RBC 2.71 m/uL (3.80-5.40); RDW 15.5 % (11.5-15.5); WBC 3.8 k/uL (3.8-10.6)
[2019-02-10 15:07] LABS: Platelet Count 60 k/uL (150-450)
[2019-02-10 15:32] LABS: INR 1.1 (<1.2); Partial Thromboplastin Time 29.3 sec (22.0-30.0); Prothrombin Time 11.4 sec (9.0-12.0)
[2019-02-10 16:11] LABS: Glucose,Whole Blood 92 mg/dL (75-99)
[2019-02-10] MEDS ORDERED: SODIUM CHLORIDE 0.9% 1,000 ML IV ONE (18:28)
[2019-02-10 20:12] LABS: Glucose,Whole Blood 100 mg/dL (75-99)
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
[2019-02-11 00:09] LABS: Glucose,Whole Blood 115 mg/dL (75-99)
[2019-02-11] MEDS: INSULIN ASPART (NovoLOG) 100 UNIT/ML VIAL SQ SCH ×6 (01:18→20:11)
[2019-02-11] MEDS: HYDROmorphone 1 MG/ML 1 ML SYRINGE IVP PRN ×3 (02:43→19:10)
[2019-02-11] MEDS: ACETAMINOPHEN IV (For NPO) 1,000 MG in EMPTY BAG 1 BAG IVPB PRN ×2 (03:00→13:00)
[2019-02-11] MEDS: IPRATROPIUM-ALBUTEROL 3 ML NEB INHALATION SCH ×6 (03:25→23:07)
[2019-02-11 04:16] LABS: Glucose,Whole Blood 101 mg/dL (75-99)
[2019-02-11 05:10] LABS: ABG Base Excess -1.6 mmol/L; ABG HCO3 23 mmol/L (21-25); ABG Oxygen Saturation 95.3 % (94-97); ABG PCO2 38 mmHg (35-45); ABG PO2 70 mmHg (83-108); ABG TCO2 25 mmol/L (19-24); Allen Test Performed? Yes
[2019-02-11 05:25] LABS: Anisocytosis Slight; MCH 30.8 pg (25.0-35.0); MCHC 33.6 g/dL (31.0-37.0); MCV 91.8 fL (80.0-100.0); Mean Platelet Volume 9.2; RBC 2.61 m/uL (3.80-5.40); RDW 16.1 % (11.5-15.5); WBC 5.5 k/uL (3.8-10.6)
[2019-02-11] MEDS: PROPOFOL 1,000 MG in EMPTY BAG 1 BAG IV SCH ×2 (05:34→20:09)
[2019-02-11] MEDS: LACTATED RINGERS 1,000 ML IV SCH ×2 (05:35→14:48)
[2019-02-11 05:47] LABS: Platelet Count 53 k/uL (150-450)
[2019-02-11 05:59] LABS: African American GFR (CKD) >90 (>60 ml/min/1.73 sqM); Blood Urea Nitrogen 15 mg/dL (7-17); Calcium 7.8 mg/dL (8.4-10.2); Carbon Dioxide 23 mmol/L (22-30); Glucose 100 mg/dL (74-99); Non-African American GFR(CKD) >90 (>60 ml/min/1.73 sqM)
[2019-02-11 06:09] LABS: Anion Gap 5 mmol/L; Chloride 111 mmol/L (98-107); Potassium 3.8 mmol/L (3.5-5.1); Sodium 139 mmol/L (137-145)
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
[2019-02-11] MEDS ORDERED: POTASSIUM BICARBONATE/CIT AC 20 MEQ TABLET.EFF NG-TUBE SCH (07:00)
--- NOTE | 2019-02-11 08:10 | XR ---
EXAMINATION TYPE: XR chest 1V portable DATE OF EXAM: 02/11/2019 COMPARISON: 02/10/2019 HISTORY: SOB, Follow Up FINDINGS: Indwelling tubes and catheters are unchanged. Bilateral chest tubes are in place without sizable pneu mothorax identified at this time. No change in bibasilar opacities. Stable appearance of the cardio-mediastinal structures at this time. IMPRESSION: 1. Stable portable chest. Clinical correlation and follow up until resolution is recommended.
[2019-02-11 08:36] LABS: Glucose,Whole Blood 94 mg/dL (75-99)
[2019-02-11] MEDS: CHLORHEXIDINE GLUCONATE 15 ML CUP MUCOUS MEM SCH ×2 (08:42→20:10)
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
[2019-02-11] MEDS: PANTOPRAZOLE 40 MG/10 ML VIAL IV SCH (08:43)
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
[2019-02-11 11:45] LABS: Glucose,Whole Blood 86 mg/dL (75-99)
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
[2019-02-11 16:09] LABS: Glucose,Whole Blood 95 mg/dL (75-99)
[2019-02-11] MEDS: PIPERACILLIN-TAZOBACTAM 3.375 GM in SODIUM CHLORIDE 0.9% 100 ML IVPB SCH (19:09)
[2019-02-11 20:10] LABS: Glucose,Whole Blood 121 mg/dL (75-99)
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
[2019-02-11 23:55] LABS: Glucose,Whole Blood 137 mg/dL (75-99)
[2019-02-12] MEDS: LACTATED RINGERS 1,000 ML IV SCH (00:14)
[2019-02-12] MEDS: NOREPINEPHRINE 4 MG in SODIUM CHLORIDE 0.9% 250 ML IV SCH ×2 (00:14→21:47)
[2019-02-12] MEDS: INSULIN ASPART (NovoLOG) 100 UNIT/ML VIAL SQ SCH ×6 (00:14→20:08)
[2019-02-12] MEDS: PIPERACILLIN-TAZOBACTAM 3.375 GM in SODIUM CHLORIDE 0.9% 100 ML IVPB SCH ×3 (00:15→17:38)
[2019-02-12] MEDS: HYDROmorphone 1 MG/ML 1 ML SYRINGE IVP PRN ×7 (00:36→23:05)
[2019-02-12] MEDS: PROPOFOL 1,000 MG in EMPTY BAG 1 BAG IV SCH (02:17)
[2019-02-12] MEDS: IPRATROPIUM-ALBUTEROL 3 ML NEB INHALATION SCH ×6 (03:02→23:30)
[2019-02-12] MEDS: ACETAMINOPHEN IV (For NPO) 1,000 MG in EMPTY BAG 1 BAG IVPB PRN (04:01)
[2019-02-12 04:35] LABS: Glucose,Whole Blood 146 mg/dL (75-99)
[2019-02-12 04:58] LABS: ABG HCO3 26 mmol/L (21-25); ABG Oxygen Saturation 93.3 % (94-97); ABG PCO2 43 mmHg (35-45); ABG PH 7.39 (7.35-7.45); ABG PO2 62 mmHg (83-108); ABG TCO2 27 mmol/L (19-24); Allen Test Performed? Yes
[2019-02-12 05:17] LABS: HCT 23.3 % (34.0-46.0); HGB 7.6 gm/dL (11.4-16.0); MCH 29.7 pg (25.0-35.0); MCHC 32.6 g/dL (31.0-37.0); MCV 91.1 fL (80.0-100.0); Mean Platelet Volume 8.8; RBC 2.55 m/uL (3.80-5.40); RDW 15.8 % (11.5-15.5); WBC 6.4 k/uL (3.8-10.6)
[2019-02-12 05:21] LABS: Platelet Count 71 k/uL (150-450)
[2019-02-12 06:15] LABS: African American GFR (CKD) >90 (>60 ml/min/1.73 sqM); Anion Gap 3 mmol/L; Blood Urea Nitrogen 20 mg/dL (7-17); Calcium 7.6 mg/dL (8.4-10.2); Carbon Dioxide 25 mmol/L (22-30); Chloride 111 mmol/L (98-107); Glucose 129 mg/dL (74-99); Non-African American GFR(CKD) >90 (>60 ml/min/1.73 sqM); Potassium 3.4 mmol/L (3.5-5.1); Sodium 139 mmol/L (137-145)
[2019-02-12] MEDS: POTASSIUM CHLORIDE 10 MEQ in WATER FOR INJECTION 1 100ML.BAG IVPB SCH ×4 (07:09→11:47)
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
[2019-02-12 08:12] LABS: Glucose,Whole Blood 125 mg/dL (75-99)
[2019-02-12] MEDS: PANTOPRAZOLE 40 MG/10 ML VIAL IV SCH (08:15)
[2019-02-12] MEDS: CHLORHEXIDINE GLUCONATE 15 ML CUP MUCOUS MEM SCH ×2 (08:16→20:08)
[2019-02-12] MEDS: FUROSEMIDE 10 MG/ML 2 ML VIAL IV SCH ×2 (09:52→20:08)
[2019-02-12 11:58] LABS: Glucose,Whole Blood 136 mg/dL (75-99)
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
[2019-02-12 16:46] LABS: Glucose,Whole Blood 157 mg/dL (75-99)
[2019-02-12 20:14] LABS: Glucose,Whole Blood 144 mg/dL (75-99)
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
[2019-02-13] MEDS: INSULIN ASPART (NovoLOG) 100 UNIT/ML VIAL SQ SCH ×6 (00:14→20:51)
[2019-02-13 00:24] LABS: Glucose,Whole Blood 128 mg/dL (75-99)
[2019-02-13] MEDS: PROPOFOL 1,000 MG in EMPTY BAG 1 BAG IV SCH ×2 (00:54→06:55)
[2019-02-13] MEDS: PIPERACILLIN-TAZOBACTAM 3.375 GM in SODIUM CHLORIDE 0.9% 100 ML IVPB SCH ×3 (00:55→17:35)
[2019-02-13] MEDS: IPRATROPIUM-ALBUTEROL 3 ML NEB INHALATION SCH ×6 (03:18→22:59)
[2019-02-13] MEDS: HYDROmorphone 1 MG/ML 1 ML SYRINGE IVP PRN ×6 (03:22→19:48)
[2019-02-13 04:09] LABS: Glucose,Whole Blood 166 mg/dL (75-99)
[2019-02-13 04:56] LABS: Allen Test Performed? Yes
[2019-02-13 04:57] LABS: ABG Base Excess 3.8 mmol/L; ABG HCO3 29 mmol/L (21-25); ABG PCO2 46 mmHg (35-45); ABG PO2 112 mmHg (83-108); ABG TCO2 30 mmol/L (19-24)
[2019-02-13 05:39] LABS: HCT 21.7 % (34.0-46.0); HGB 7.1 gm/dL (11.4-16.0); Hypochromasia Slight; MCH 30.1 pg (25.0-35.0); MCHC 32.6 g/dL (31.0-37.0); MCV 92.3 fL (80.0-100.0); Mean Platelet Volume 8.3; RBC 2.35 m/uL (3.80-5.40); RDW 15.2 % (11.5-15.5); WBC 8.2 k/uL (3.8-10.6)
[2019-02-13 05:50] LABS: ALT 54 U/L (9-52); AST 44 U/L (14-36); African American GFR (CKD) >90 (>60 ml/min/1.73 sqM); Albumin 1.7 g/dL (3.5-5.0); Alkaline Phosphatase 88 U/L (38-126); Anion Gap 3 mmol/L; Blood Urea Nitrogen 25 mg/dL (7-17); Calcium 7.8 mg/dL (8.4-10.2); Carbon Dioxide 27 mmol/L (22-30); Chloride 109 mmol/L (98-107); Glucose 134 mg/dL (74-99); Non-African American GFR(CKD) 89 (>60 ml/min/1.73 sqM); Platelet Count 85 k/uL (150-450); Potassium 3.2 mmol/L (3.5-5.1); Sodium 139 mmol/L (137-145); Total Bilirubin 0.9 mg/dL (0.2-1.3); Total Protein 3.5 g/dL (6.3-8.2)
[2019-02-13] MEDS: POTASSIUM BICARBONATE/CIT AC 20 MEQ TABLET.EFF NG-TUBE SCH ×2 (06:53→10:23)
[2019-02-13] MEDS: FUROSEMIDE 10 MG/ML 2 ML VIAL IV SCH ×2 (08:08→20:51)
--- NOTE | 2019-02-13 08:20 | XR ---
EXAMINATION TYPE: XR chest 1V portable DATE OF EXAM: 02/13/2019 COMPARISON: 02/12/2019 HISTORY: SOB, Follow Up FINDINGS: Indwelling tubes and catheters are unchanged. Perihilar and basilar infiltrates and effusions are unchanged. Stable appearance of the cardio-mediastinal structures at this time. Pleural effusion unchanged. IMPRESSION: 1. Stable portable chest. Clinical correlation and follow up until resolution is recommended.
[2019-02-13 08:31] LABS: Glucose,Whole Blood 145 mg/dL (75-99)
[2019-02-13] MEDS: ACETAMINOPHEN IV (For NPO) 1,000 MG in EMPTY BAG 1 BAG IVPB PRN ×2 (08:46→13:32)
--- NOTE | 2019-02-13 08:49 | XR ---
EXAMINATION TYPE: XR ankle complete LT DATE OF EXAM: 02/13/2019 COMPARISON: NONE HISTORY: Pain TECHNIQUE: 3 views of the left ankle are submitted for evaluation. FINDINGS: There is no evidence for fracture or dislocation. Ankle mortise is intact. Soft tissues are within normal limits. IMPRESSION: 1. No evidence for acute fracture.
[2019-02-13] MEDS: PANTOPRAZOLE 40 MG/10 ML VIAL IV SCH (08:52)
[2019-02-13] MEDS: CHLORHEXIDINE GLUCONATE 15 ML CUP MUCOUS MEM SCH ×2 (08:57→20:52)
[2019-02-13 09:48] VITALS: BMI 30.9
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
[2019-02-13] MEDS ORDERED: Phosphorus Replacement Protoco 1 EACH MISC MISCELLANE PRN (10:03)
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
[2019-02-13] MEDS ORDERED: POTASSIUM CHLORIDE 20 MEQ in WATER FOR INJECTION 1 100ML.BAG IVPB SCH (11:00)
[2019-02-13 11:48] LABS: Glucose,Whole Blood 158 mg/dL (75-99)
[2019-02-13] MEDS: POTASSIUM PHOSPHATE 10 MMOL in SODIUM CHLORIDE 0.9% 250 ML IV SCH ×2 (13:17→15:50)
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
[2019-02-13 16:34] LABS: Glucose,Whole Blood 118 mg/dL (75-99)
[2019-02-13 20:07] LABS: Glucose,Whole Blood 137 mg/dL (75-99)
[2019-02-13] MEDS: NOREPINEPHRINE 4 MG in SODIUM CHLORIDE 0.9% 250 ML IV SCH (20:23)
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
[2019-02-14 00:04] LABS: Glucose,Whole Blood 124 mg/dL (75-99)
[2019-02-14] MEDS: INSULIN ASPART (NovoLOG) 100 UNIT/ML VIAL SQ SCH ×6 (00:22→21:23)
[2019-02-14] MEDS: PIPERACILLIN-TAZOBACTAM 3.375 GM in SODIUM CHLORIDE 0.9% 100 ML IVPB SCH ×3 (00:25→16:05)
[2019-02-14] MEDS: ACETAMINOPHEN IV (For NPO) 1,000 MG in EMPTY BAG 1 BAG IVPB PRN ×3 (00:25→14:36)
[2019-02-14] MEDS: HYDROmorphone 1 MG/ML 1 ML SYRINGE IVP PRN ×8 (00:52→23:15)
[2019-02-14] MEDS: IPRATROPIUM-ALBUTEROL 3 ML NEB INHALATION SCH ×6 (03:07→23:48)
[2019-02-14 05:07] LABS: Glucose,Whole Blood 129 mg/dL (75-99)
--- NOTE | 2019-02-14 06:18 | XR ---
EXAMINATION TYPE: XR chest 1V portable DATE OF EXAM: 02/14/2019 HISTORY: Tube placement. REFERENCE: Previous study dated 02/13/2019. FINDINGS: The patient has been extubated. The NG tube is been removed. Right internal jugular sheath remains in place. There is increasing opacity of the right hemithorax. This is in part secondary to rotation. Heart alas s not appear enlarged. There is left basilar airspace disease. There are small, bilateral effusions, greater on the right the left. IMPRESSION: INCREASED OPACITY OF THE RIGHT HEMITHORAX IS IN PART SECONDARY TO ROTATION. INCREASING AI RSPACE DISEASE IS NOT EXCLUDED.
[2019-02-14 06:41] LABS: HCT 27.3 % (34.0-46.0); Hypochromasia Moderate; MCH 30.4 pg (25.0-35.0); MCHC 32.3 g/dL (31.0-37.0); MCV 93.9 fL (80.0-100.0); Mean Platelet Volume 7.8; Platelet Count 124 k/uL (150-450); RDW 15.2 % (11.5-15.5); WBC 17.8 k/uL (3.8-10.6)
[2019-02-14 06:55] LABS: HGB 8.8 gm/dL (11.4-16.0)
[2019-02-14 07:25] LABS: Anion Gap 4 mmol/L; Blood Urea Nitrogen 30 mg/dL (7-17); Carbon Dioxide 33 mmol/L (22-30); Chloride 107 mmol/L (98-107); Glucose 123 mg/dL (74-99); Potassium 4.2 mmol/L (3.5-5.1); Sodium 144 mmol/L (137-145)
[2019-02-14 07:26] LABS: African American GFR (CKD) >90 (>60 ml/min/1.73 sqM); Calcium 8.2 mg/dL (8.4-10.2); Non-African American GFR(CKD) 86 (>60 ml/min/1.73 sqM); Phosphorus 3.7 mg/dL (2.5-4.5)
[2019-02-14] MEDS: PANTOPRAZOLE 40 MG/10 ML VIAL IV SCH (08:14)
[2019-02-14] MEDS: FUROSEMIDE 10 MG/ML 2 ML VIAL IV SCH ×2 (08:15→19:45)
[2019-02-14 10:07] LABS: ABG Base Excess 6.5 mmol/L; ABG HCO3 34 mmol/L (21-25); ABG Oxygen Saturation 95.2 % (94-97); ABG PH 7.26 (7.35-7.45); ABG PO2 75 mmHg (83-108); ABG TCO2 36 mmol/L (19-24); Allen Test Performed? Yes
[2019-02-14 10:12] LABS: ABG PCO2 75 mmHg (35-45)
[2019-02-14] MEDS: NOREPINEPHRINE 4 MG in SODIUM CHLORIDE 0.9% 250 ML IV SCH (11:59)
[2019-02-14 12:01] LABS: Glucose,Whole Blood 131 mg/dL (75-99)
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
[2019-02-14 20:14] LABS: Glucose,Whole Blood 137 mg/dL (75-99)
[2019-02-14 23:59] LABS: Glucose,Whole Blood 130 mg/dL (75-99)
[2019-02-15 00:12] LABS: Glucose,Whole Blood 145 mg/dL (75-99)
[2019-02-15] MEDS: INSULIN ASPART (NovoLOG) 100 UNIT/ML VIAL SQ SCH (00:17)
[2019-02-15] MEDS: PIPERACILLIN-TAZOBACTAM 3.375 GM in SODIUM CHLORIDE 0.9% 100 ML IVPB SCH ×2 (00:24→09:56)
[2019-02-15] MEDS: HYDROmorphone 1 MG/ML 1 ML SYRINGE IVP PRN ×5 (01:12→10:51)
[2019-02-15] MEDS: IPRATROPIUM-ALBUTEROL 3 ML NEB INHALATION SCH ×3 (03:42→11:12)
[2019-02-15 04:10] LABS: Glucose,Whole Blood 139 mg/dL (75-99)
[2019-02-15 05:30] LABS: HCT 27.5 % (34.0-46.0); HGB 8.6 gm/dL (11.4-16.0); Hypochromasia Moderate; MCH 28.9 pg (25.0-35.0); MCHC 31.1 g/dL (31.0-37.0); MCV 92.8 fL (80.0-100.0); Mean Platelet Volume 7.9; Platelet Count 140 k/uL (150-450); Poikilocytosis Slight; RBC 2.96 m/uL (3.80-5.40); RDW 15.7 % (11.5-15.5); WBC 18.2 k/uL (3.8-10.6)
[2019-02-15 05:46] LABS: African American GFR (CKD) >90 (>60 ml/min/1.73 sqM); Anion Gap 2 mmol/L; Blood Urea Nitrogen 35 mg/dL (7-17); Calcium 8.3 mg/dL (8.4-10.2); Carbon Dioxide 38 mmol/L (22-30); Chloride 106 mmol/L (98-107); Glucose 134 mg/dL (74-99); Non-African American GFR(CKD) 85 (>60 ml/min/1.73 sqM); Phosphorus 2.8 mg/dL (2.5-4.5); Potassium 3.2 mmol/L (3.5-5.1); Sodium 146 mmol/L (137-145)
[2019-02-15] MEDS ORDERED: INSULIN ASPART (NovoLOG) 100 UNIT/ML VIAL SQ SCH (06:00)
[2019-02-15] MEDS ORDERED: Potassium Replacement Protocol 1 EACH MISC MISCELLANE PRN (06:10)
[2019-02-15] MEDS: POTASSIUM CHLORIDE 20 MEQ in WATER FOR INJECTION 1 100ML.BAG IVPB SCH ×2 (06:18→09:56)
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
[2019-02-15 08:40] VITALS: TEMP 98
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
[2019-02-15] MEDS: PANTOPRAZOLE 40 MG/10 ML VIAL IV SCH (09:56)
[2019-02-15] MEDS: FUROSEMIDE 10 MG/ML 2 ML VIAL IV SCH (09:56)
[2019-02-15] MEDS: NOREPINEPHRINE 4 MG in SODIUM CHLORIDE 0.9% 250 ML IV SCH (10:27)
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
[2019-02-15] MEDS ORDERED: MORPHINE SULFATE 2 MG/ML SYRINGE IV PRN (10:59)
[2019-02-15] MEDS ORDERED: MORPHINE SULFATE 100 MG in SODIUM CHLORIDE 0.9% 90 ML IV SCH (11:00)
[2019-02-15] MEDS ORDERED: GLYCOPYRROLATE 0.2 MG/ML 2 ML VIAL IVP PRN (11:05)
[2019-02-15] MEDS ORDERED: DRY MOUTH SPRAY 44.3 SPRAY/44.3 ML SPRAY MUCOUS MEM PRN (11:05)
[2019-02-15 11:40] VITALS: BP 141/74
[2019-02-15 12:44] VITALS: PULSE 59; RESP 5
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
== END 2019-02-15 15:09 | disposition expired | DRG 907 ==
LOC: EC 08:23 → 2SICU 10:12
PROVIDERS: ADMIT Surgery; ATTEND Surgery
PROC: 0BH18EZ Insertion of Endotracheal Airway into Trachea, Via Natural or Artificial Opening Endoscopic (ICD-10-PCS; 2019-02-08)
PROC: 5A1955Z Respiratory Ventilation, Greater than 96 Consecutive Hours (ICD-10-PCS; 2019-02-08)
PROC: 03HY32Z Insertion of Monitoring Device into Upper Artery, Percutaneous Approach (ICD-10-PCS; 2019-02-08)
PROC: 4A133B1 Monitoring of Arterial Pressure, Peripheral, Percutaneous Approach (ICD-10-PCS; 2019-02-08)
PROC: 4A133J1 Monitoring of Arterial Pulse, Peripheral, Percutaneous Approach (ICD-10-PCS; 2019-02-08)
PROC: 0W3 Anatomical Regions, General, Control (ICD-10-PCS; principal; 2019-02-08 09:05)
PROC: 05L Upper Veins, Occlusion (ICD-10-PCS; principal; 2019-02-08 09:05)
PROC: 0PB10ZZ Excision of 1 to 2 Ribs, Open Approach (ICD-10-PCS; principal; 2019-02-08 09:05)
PROC: 03L Upper Arteries, Occlusion (ICD-10-PCS; principal; 2019-02-08 09:05)
PROC: 30233N1 Transfusion of Nonautologous Red Blood Cells into Peripheral Vein, Percutaneous Approach (ICD-10-PCS; 2019-02-08 09:05)
PROC: 0W9B30Z Drainage of Left Pleural Cavity with Drainage Device, Percutaneous Approach (ICD-10-PCS; 2019-02-08 09:05)
PROC: 30233K1 Transfusion of Nonautologous Frozen Plasma into Peripheral Vein, Percutaneous Approach (ICD-10-PCS; 2019-02-08 09:05)
PROC: 30233R1 Transfusion of Nonautologous Platelets into Peripheral Vein, Percutaneous Approach (ICD-10-PCS; 2019-02-08 09:05)
PROC: 0W9930Z Drainage of Right Pleural Cavity with Drainage Device, Percutaneous Approach (ICD-10-PCS; 2019-02-08 09:05)
PROC: 5A09457 Assistance with Respiratory Ventilation, 24-96 Consecutive Hours, Continuous Positive Airway Pressure (ICD-10-PCS; 2019-02-13)
DX: S25.81 Laceration of other blood vessels of thorax (principal); G92 Toxic encephalopathy; S22.5XXA Flail chest, initial encounter for closed fracture; J96.01 Acute respiratory failure with hypoxia; J96.02 Acute respiratory failure with hypercapnia; K66.1 Hemoperitoneum; S27.1XXA Traumatic hemothorax, initial encounter; T79.4XXA Traumatic shock, initial encounter; S22.029A Unspecified fracture of second thoracic vertebra, initial encounter for closed fracture; S22.21XA Fracture of manubrium, initial encounter for closed fracture; S22.22XA Fracture of body of sternum, initial encounter for closed fracture; S32.019A Unspecified fracture of first lumbar vertebra, initial encounter for closed fracture; S52.602A Unspecified fracture of lower end of left ulna, initial encounter for closed fracture; D62 Acute posthemorrhagic anemia; E87.2 Acidosis; J93.82 Other air leak; J95.851 Ventilator associated pneumonia; V43.62XA Car passenger injured in collision with other type car in traffic accident, initial encounter; Y92.410 Unspecified street and highway as the place of occurrence of the external cause; D69.59 Other secondary thrombocytopenia; E11.9 Type 2 diabetes mellitus without complications; E78.5 Hyperlipidemia, unspecified; Z51.5 Encounter for palliative care; Z66 Do not resuscitate; I10 Essential (primary) hypertension; Y95 Nosocomial condition; K57.30 Diverticulosis of large intestine without perforation or abscess without bleeding; M43.16 Spondylolisthesis, lumbar region; M85.80 Other specified disorders of bone density and structure, unspecified site; Z79.84 Long term (current) use of oral hypoglycemic drugs; Z80.0 Family history of malignant neoplasm of digestive organs; Z82.0 Family history of epilepsy and other diseases of the nervous system; Z82.49 Family history of ischemic heart disease and other diseases of the circulatory system; Z83.3 Family history of diabetes mellitus; R40.2132 Coma scale, eyes open, to sound, at arrival to emergency department; R40.2352 Coma scale, best motor response, localizes pain, at arrival to emergency department; R40.2242 Coma scale, best verbal response, confused conversation, at arrival to emergency department; Z98.42 Cataract extraction status, left eye; Z98.41 Cataract extraction status, right eye; Z88.8 Allergy status to other drugs, medicaments and biological substances; B96.5 Pseudomonas (aeruginosa) (mallei) (pseudomallei) as the cause of diseases classified elsewhere; Y84.8 Other medical procedures as the cause of abnormal reaction of the patient, or of later complication, without mention of misadventure at the time of the procedure; Y82.8 Other medical devices associated with adverse incidents; T41.295A Adverse effect of other general anesthetics, initial encounter; T40.2X5A Adverse effect of other opioids, initial encounter
CPT/HCPCS: 32551; 36415; 36556; 36600; 70450; 71045; 71260; 72125; 72128; 72170; 74177; 80048; 80053; 80306; 80320; 81001; 82150; 82330; 82550; 82553; 82805; 83036; 83605; 83690; 83735; 84100; 84132; 84443; 84484; 85025; 85027; 85384; 85610; 85730; 86850; 86900; 86901; 86920; 87040; 87070; 87077; 87086; 87186; 87205; 88300; 93306; 94003; 94640; 94660; 96365; 99291